=== PATIENT | male | born 1970 | race Caucasian/White ===

== ENCOUNTER 2019-12-24 23:09 | Emergency (ER) | payer SELFPAY ==
[2019-12-24 23:20] VITALS: BP 135/75; PULSE 86; RESP 22; TEMP 37.4; O2SAT 97
--- NOTE | 2019-12-24 23:42 | ED.HA ---
HPI - Headache General Chief Complaint: Headache Stated Complaint: swollen glands bad headache weakness fatigue Time Seen by Provider: 12/24/19 23:10 Source: patient Mode of arrival: Ambulatory Limitations: no limitations History of Present Illness HPI Narrative: 49M nonsmoker without significant medical history presents with the chief complaint of severe sore throat, body aches, trouble swallowing, and head pain gradually worsening since saturday. He works in a healthcare setting but doesn't think he's been exposed to someone with known COVID. He denies trouble breathing, cough, shortness of breath, runny nose, sneezing. He has had no nausea, vomiting or diarrhea. He denies any dysuria, frequency or urgency. Onset (ago): day(s) Onset description: gradual Severity: moderate Quality: aching Relieving factors: nothing Exacerbating factors: none Associated symptoms: none Treatments prior to arrival: acetaminophen and ibuprofen Related Data Allergies Allergy/AdvReac Type Severity Reaction Status Date / Time No Known Drug Allergies Allergy Verified 12/24/19 23:39 Review of Systems Constitutional Constitutional: Reports body ache(s), Denies chills, Reports fatigue, Denies fever(s), Denies frequent falls, Reports headache(s), Denies lethargy and Denies weakness Eyes Eyes: Denies change in vision, Denies eye discharge, Denies irritation and Denies loss of vision ENT Ears, Nose, Mouth, and Throat: Denies change in voice, Denies dizziness, Reports headache(s), Denies neck pain, Reports sore throat and Denies throat swelling Cardiovascular Cardiovascular: Denies chest pain, Denies irregular heart rhythm, Denies lightheadedness, Denies palpitations, Denies dyspnea, Denies dyspnea on exertion and Denies orthopnea Respiratory Respiratory: Denies cough, Denies dyspnea, Denies dyspnea on exertion and Denies wheezing Gastrointestinal Gastrointestinal: Denies abdominal pain, Denies change in bowel habits, Denies diarrhea, Denies nausea and Denies vomiting Musculoskeletal Musculoskeletal: Denies neck pain and Denies numbness Integumentary/Breasts Skin/Breast: Denies pruritus, Denies erythema, Denies rash and Denies wounds Neurologic Neurologic: Denies behavioral changes, Denies confusion, Denies dizziness, Denies frequent falls, Reports headache(s), Denies loss of vision, Denies numbness and Denies weakness Psychiatric Psychiatric: Denies anxiety, Denies behavioral changes, Denies confusion, Denies depression, Denies homicidal ideation and Denies suicidal ideation Endocrine Endocrine: Reports fatigue, Denies flushing and Denies palpitations Hematologic/Lymphatic Hematologic/Lymphatic: Denies easy bruising Allergic/Immunologic Allergic/Immunologic: Denies urticaria, Denies throat swelling and Denies wheezing Patient History Social History Smoking Status: Never smoker Smoking Status: Never smoker alcohol intake frequency: a few times a month Substance Use Type: does not use Exam Narrative Exam Narrative: GENERAL: [49] year old patient appears stated age. Well-nourished, well-developed patient, in mild distress. HEAD: Atraumatic. Normocephalic. EYES: Pupils equal round and reactive. Extraocular motions intact. No scleral icterus. No injection or drainage. ENT: Nose without bleeding, purulent drainage. Pharyngeal erythema, small amount of tonsillar exudate on right tonsil. Left TM retracted and erythematous centrally. Airway patent. NECK: Trachea midline. Non tender. No meningeal signs CARDIOVASCULAR: Regular rate and rhythm without murmurs, gallops, or rubs. RESPIRATORY: Clear to auscultation. Breath sounds equal bilaterally. No wheezes, rales, or rhonchi. GASTROINTESTINAL: Abdomen soft, non-tender, nondistended. EXTREMITIES: No edema or joint tenderness. BACK: Nontender without deformity or crepitance. No flank tenderness. NEURO: AOx3. SKIN: No rash or erythema of visible areas Initial Vital Signs Initial Vital Signs: Vital Signs Temperature 99.4 F 12/24/19 23:20 Pulse Rate 86 12/24/19 23:20 Respiratory Rate 22 12/24/19 23:20 Blood Pressure 135/75 12/24/19 23:20 Pulse Oximetry 97 12/24/19 23:20 Course Orders Ordered: ED Orders 12/24/19 23:24 COVID19 -ED/INPAT/OR/L&D Stat 12/24/19 23:40 Basic Metabolic Panel Stat Complete Blood Count AUTO DIFF Stat Procalcitonin Stat Throat Culture Stat 12/25/19 00:14 COVID19 -ED/INPAT/OR/L&D Stat Discontinued Medications Acetaminophen (Tylenol) 975 mg PO NOW ONE Stop: 12/25/19 01:00 Last Admin: 12/25/19 01:18 Dose: 975 mg Documented by: MARY Dexamethasone (Decadron) 10 mg IV NOW ONE Stop: 12/24/19 23:29 Last Admin: 12/25/19 00:09 Dose: 10 mg Documented by: MARY Dexamethasone (Decadron) 10 mg IV NOW ONE Stop: 12/25/19 01:00 Last Admin: 12/25/19 01:19 Dose: Not Given Documented by: MARY Sodium Chloride (Normal Saline 0.9%) 1,000 mls @ 1,000 mls/hr IV BOLUS ONE Stop: 12/25/19 00:27 Last Infusion: 12/25/19 01:45 Dose: 0 mls/hr Documented by: Admin: 12/25/19 00:09 Dose: 1,000 mls/hr Documented by: MARY Ketorolac Tromethamine (Toradol) 15 mg IV NOW ONE Stop: 12/24/19 23:29 Last Admin: 12/25/19 00:08 Dose: 15 mg Documented by: MARY Metoclopramide HCl (Reglan) 10 mg IV NOW ONE Stop: 12/25/19 01:00 Last Admin: 12/25/19 01:19 Dose: 10 mg Documented by: MARY Reevaluation(s) Reevaluation #1: patient feeling much better after above stated therapies Vital Signs Vital signs: Vital Signs - 8 hr 12/24/19 23:20 12/25/19 00:29 12/25/19 00:30 Temperature 99.4 F Pulse Rate 86 83 83 Respiratory Rate 22 18 Blood Pressure 135/75 132/73 Pulse Oximetry 97 95 94 12/25/19 01:49 12/25/19 03:05 Temperature 97.9 F Pulse Rate 72 72 Respiratory Rate 18 18 Blood Pressure 141/73 H 129/71 Pulse Oximetry 94 98 MDM - Headache Lab Data Result diagrams: 12/24/19 23:40 12/24/19 23:40 Labs: Lab Results 12/24/19 12/24/19 12/24/19 Range/Units 23:24 23:40 23:40 WBC 9.3 (4.5-11.0) X10^3/uL RBC 5.69 (4.5-5.9) X10^6/uL Hgb 17.4 (13.5-17.5) g/dL Hct 49.8 (41-53) % MCV 87.7 (80-100) fL MCH 30.5 (26-34) PG MCHC 34.8 (30-36) % RDW 14.2 (11.6-14.8) % Plt Count 231 (150-400) X10^3/uL Neut % (Auto) 72.2 (50-75) % Lymph % (Auto) 14.3 L (25-40) % Schleicher % (Auto) 12.2 (3-14) % Eos % (Auto) 0.9 L (2-4) % Baso % (Auto) 0.4 (0-2) % Neut # (Auto) 6700 (8780-6634) /uL Lymph # (Auto) 1300 (5487-2522) /uL Schleicher # (Auto) 1100 H (0-900) /uL Eos # (Auto) 100 (0-450) /uL Baso # (Auto) 0 (0-100) /uL Sodium (137-145) mmol/L Potassium (3.4-5.1) mmol/L Chloride (98-107) mmol/L Carbon Dioxide (22-32) mmol/L BUN (9-20) mg/dL Creatinine (0.66-1.25) mg/dL Estimated GFR (>60) mL/min BUN/Creatinine Ratio (6-22) Glucose (70-100) mg/dL Calcium (8.4-10.2) mg/dL Procalcitonin 0.16 (<0.5) ng/mL COVID-19 PCR Negative (Negative) 12/24/19 12/25/19 Range/Units 23:40 00:14 WBC (4.5-11.0) X10^3/uL RBC (4.5-5.9) X10^6/uL Hgb (13.5-17.5) g/dL Hct (41-53) % MCV (80-100) fL MCH (26-34) PG MCHC (30-36) % RDW (11.6-14.8) % Plt Count (150-400) X10^3/uL Neut % (Auto) (50-75) % Lymph % (Auto) (25-40) % Schleicher % (Auto) (3-14) % Eos % (Auto) (2-4) % Baso % (Auto) (0-2) % Neut # (Auto) (7105-7406) /uL Lymph # (Auto) (3248-6031) /uL Schleicher # (Auto) (0-900) /uL Eos # (Auto) (0-450) /uL Baso # (Auto) (0-100) /uL Sodium 141 (137-145) mmol/L Potassium 4.3 (3.4-5.1) mmol/L Chloride 103 (98-107) mmol/L Carbon Dioxide 32 (22-32) mmol/L BUN 12 (9-20) mg/dL Creatinine 1.32 H (0.66-1.25) mg/dL Estimated GFR 57.4 L (>60) mL/min BUN/Creatinine Ratio 9.1 (6-22) Glucose 119 H (70-100) mg/dL Calcium 8.9 (8.4-10.2) mg/dL Procalcitonin (<0.5) ng/mL COVID-19 PCR Negative (Negative) Point of Care Testing Rapid Strep A Negative MDM Narrative Medical decision making narrative: Multiple etiologies for patient's symptoms considered including: [COVID vs. viral URI vs. strep vs. other] Patient's symptoms improved over duration of stay with above-stated therapies. Findings and discharge diagnosis discussed with patient/family followed by verbalization of understanding Return precautions discussed with patient/family whom verbalize understanding. Discharge Plan Departure Patient Disposition: Home Clinical Impression: Acute viral syndrome Discharge Date/Time: 12/25/19 03:05 Instructions: DI for Headache Activity Restrictions/Additional Instructions: *You have been diagnosed with [headache, likely secondary to a viral syndrome. COVID swabs are negative, exam and response to medications are very reassuring] *What to do: *Take medications as directed *Follow up with your primary care provider in 2-3 days, call for an appointment. Let them know you were seen in the Emergency Department and that we ask that you be seen in follow up *Return to ER if you should have any new, worsening or concerning symptoms Referrals: [facility] [Outside]
[2019-12-24 23:46] LABS: COVID19 -Nasal RAPID Negative (Negative)
[2019-12-24 23:56] LABS: Add Manual Diff / Slide Review NO; Basophils Absolute Auto 0 /uL (0-100); Basophils Percent Auto 0.4 % (0-2); Eosinophils Absolute Auto 100 /uL (0-450); Eosinophils Percent Auto 0.9 % (2-4); Hematocrit 49.8 % (41-53); Hemoglobin 17.4 g/dL (13.5-17.5); Lymphocytes Absolute Auto 1300 /uL (1100-4500); Lymphocytes Percent Auto 14.3 % (25-40); Mean Corpuscular HGB Conc 34.8 % (30-36); Mean Corpuscular Hemoglobin 30.5 PG (26-34); Mean Corpuscular Volume 87.7 fL (80-100); Monocytes Absolute Auto 1100 /uL (0-900); Monocytes Percent Auto 12.2 % (3-14); Neutrophils Absolute Auto 6700 /uL (1500-7000); Neutrophils Percent Auto 72.2 % (50-75); Platelet Count 231 X10^3/uL (150-400); Red Blood Cell Count 5.69 X10^6/uL (4.5-5.9); Red Cell Distribution Width 14.2 % (11.6-14.8); White Blood Cell Count 9.3 X10^3/uL (4.5-11.0)
[2019-12-25 00:07] LABS: BUN Creatinine Ratio 9.1 (6-22); Blood Urea Nitrogen 12 mg/dL (9-20); Calcium 8.9 mg/dL (8.4-10.2); Carbon Dioxide 32 mmol/L (22-32); Chloride 103 mmol/L (98-107); Estimated Glomerular Filt Rate 57.4 mL/min (>60); Glucose 119 mg/dL (70-100); HEMOLYSIS < 15 (0-50); Potassium 4.3 mmol/L (3.4-5.1); Sodium 141 mmol/L (137-145)
[2019-12-25] MEDS: KETOROLAC 60 MG/2 ML VIAL 15 MG IV (00:08)
[2019-12-25] MEDS: SODIUM CHLORIDE 0.9% 1,000 ML 1000 ML IV (00:09)
[2019-12-25] MEDS: DEXAMETHASONE 10 MG/ML VIAL IV (00:09)
[2019-12-25 00:21] LABS: Procalcitonin 0.16 ng/mL (<0.5)
[2019-12-25 00:29] VITALS: PULSE 83; O2SAT 95
[2019-12-25 00:30] VITALS: BP 132/73; PULSE 83; RESP 18; O2SAT 94
[2019-12-25] MEDS: ACETAMINOPHEN 325 MG TABLET 975 MG PO (01:18)
[2019-12-25] MEDS: METOCLOPRAMIDE 10 MG/2 ML INJ IV (01:19)
[2019-12-25 01:49] VITALS: BP 141/73; PULSE 72; RESP 18; O2SAT 94
[2019-12-25 02:13] LABS: COVID19 -Nasal RAPID Negative (Negative)
[2019-12-25 03:05] VITALS: BP 129/71; PULSE 72; RESP 18; TEMP 36.6; O2SAT 98
== END 2019-12-25 03:05 | disposition home or self-care (01) ==
PROVIDERS: Emergency Provider Emergency Medicine
DX: B34.9 Viral infection, unspecified (principal); R51.9 Headache, unspecified
CPT/HCPCS: 36415; 80048; 84145; 85025; 87070; 87635; 87880; 96361; 96374; 96375; 99284; J1100; J1885; J2765

== ENCOUNTER → 2020-01-20 09:09 | Outpatient (CLI) | payer SELFPAY | PROVIDERS: Referring Provider Internal Medicine; Visit Provider Internal Medicine | DX: Z23 Encounter for immunization (principal) | CPT/HCPCS: 90471; 90686 ==